=== PATIENT | female | born 1990 | race African-American/Black ===

== ENCOUNTER 2017-07-26 13:06 | Emergency (ER) | payer OTHER ==
[~2017-07-26] VITALS: Ht 160 cm; Wt 55.0 kg
[2017-07-26] MEDS ORDERED: SODIUM CHLORIDE 0.9% 500 ML IV ONE (14:30)
[2017-07-26 15:21] LABS: CHLORIDE 100 mEq/L (98-107); INR 1.1; PROTHROMBIN TIME 11.6 sec (9.4-11.6)
[2017-07-26 15:23] LABS: BASOPHILS % 0.4 % (0.0-2.0); EOSINOPHILS % 0.6 % (0.0-5.0); HEMATOCRIT. 38.9 % (36.0-48.0); HEMOGLOBIN. 12.1 g/dL (12.0-16.0); LYMPHOCYTES % 20.3 % (20.0-50.0); MEAN CORPUSCULAR VOLUME 83.8 fL (81.0-99.0); MEAN PLATELET VOLUME 7.6 fl (7.4-10.4); MONOCYTES % 6.3 % (2.0-8.0); NEUTROPHILS % 72.4 % (40.0-76.0); PLATELET 431 x1000/uL (130-400); RED BLOOD CELL COUNT 4.64 mill/uL (4.2-5.4); RED CELL DISTRIBUTION WIDTH 18.8 % (11.6-14.6)
[2017-07-26 15:35] LABS: CLARITY URINE CLOUDY (CLEAR); COLOR URINE YELLOW (YELLOW); KETONES URINE 2+ (NEGATIVE); LEUKOCYTE ESTERASE URINE 2+ (NEGATIVE); NITRITE URINE NEGATIVE (NEGATIVE); OCCULT BLOOD URINE NEGATIVE (NEGATIVE); PROTEIN URINE NEGATIVE (NEGATIVE); SPECIFIC GRAVITY URINE 1.022 (1.005-1.030); UROBILINOGEN URINE 0.2 E.U./dL (0.2-1.0)
[2017-07-26 15:47] LABS: HEPATITIS B SURFACE ANTIGEN NEGATIVE
[2017-07-26 15:50] LABS: *AMPHETAMINES SCREEN URINE NEGATIVE (NEGATIVE); *BARBITURATES SCREEN URINE NEGATIVE (NEGATIVE); *BENZODIAZEPINES SCREEN URINE NEGATIVE (NEGATIVE); *COCAINE SCREEN URINE NEGATIVE (NEGATIVE); METHADONE URINE SCREEN NEGATIVE (NEGATIVE)
[2017-07-26 15:51] LABS: CANNABINOID URINE SCREEN NEGATIVE (NEGATIVE); PHENCYCLIDINE URINE SCREEN NEGATIVE (NEGATIVE)
[2017-07-26 15:57] LABS: OPIATES URINE SCREEN PRESUMTIVE POSITIVE (NEGATIVE)
[2017-07-26 16:16] LABS: HEPATITIS B CORE AB IGM NEGATIVE
[2017-07-26 16:17] LABS: HEPATITIS A AB IGM NEGATIVE (NEGATIVE)
[2017-07-26] MEDS ORDERED: BISACODYL 5MG TABLET PO ONE (18:30)
[2017-07-26] MEDS ORDERED: NA PHOS,M-B/NA PHOS,DI-BA ENEMA 118ML PR ONE (18:30)
[2017-07-26] MEDS ORDERED: KETOROLAC 30MG/ML VIAL IV ONE (18:30)
[2017-07-26] MEDS ORDERED: DIPHENHYDRAMINE 25MG CAPSULE PO ONE (21:30)
[2017-07-26] MEDS ORDERED: ONDANSETRON 4MG ODT PO ONE (21:30)
[2017-07-27] VITALS: BP 133/81
[2017-07-31 19:11] LABS: BARBITURATE SCREEN Negative ug/mL (Cutoff:0.1); BENZODIAZEPINE SCREEN Negative ng/mL (Cutoff:20); OPIATES SCREEN Negative ng/mL (Cutoff:5); PHENCYCLIDINE SCREEN Negative ng/mL (Cutoff:8)
== END 2017-07-27 00:10 | disposition home or self-care (01) ==
LOC: ER 13:32
DX: K56.609 Unspecified intestinal obstruction, unspecified as to partial versus complete obstruction (principal); T40.2X5A Adverse effect of other opioids, initial encounter; E86.0 Dehydration; D50.9 Iron deficiency anemia, unspecified; E87.1 Hypo-osmolality and hyponatremia; R79.89 Other specified abnormal findings of blood chemistry; R82.4 Acetonuria; F41.9 Anxiety disorder, unspecified; N39.0 Urinary tract infection, site not specified; N17.0 Acute kidney failure with tubular necrosis; Y92.89 Other specified places as the place of occurrence of the external cause
CPT/HCPCS: 36415; 71045; 74176; 80053; 80305; 80307; 81003; 81025; 83036; 83735; 83880; 84484; 85025; 85610; 87040; 87077; 87086; 87186; 93005; 96361; 96374; 99285; J1885; J7040; Q0162; 86705; 86709; 86803; 87340; Q0163

== ENCOUNTER 2017-07-29 16:37 | Emergency (ER) | payer OTHER ==
[~2017-07-29] VITALS: Ht 167.6 cm; Wt 55.0 kg
[2017-07-29 16:39] VITALS: BP 107/78
== END 2017-07-29 17:10 | disposition home or self-care (01) ==
LOC: ER 16:43
DX: R07.89 Other chest pain (principal); J45.909 Unspecified asthma, uncomplicated
CPT/HCPCS: 99283